=== PATIENT | male | born 1960 | race Caucasian/White ===

== ENCOUNTER 2016-11-02 23:18 | Emergency (ER) | payer SELFPAY ==
[~2016-11-02] VITALS: Ht 175.2 cm; Wt 81.6 kg
[~2016-11-02 23:18] MED LIST: BUPRENORPHINE HY8 MG SL; CLARITIN10 MG PO; FLONASE ALLERG9.9 ML NAS; LIDEX 0.05% CRE15 GM T; PREDNISONE10 MG PO; PREDNISONE20 M1 PO; ROBITUSSIN AC 110 ML PO; SUBOXONE 8 MG-1 EACH SL; SUBUTEX SL; TESSALON PERLE100 M1 PO; ZITHROMAX250 MG PO
[2016-11-03] MEDS ORDERED: CEPHALEXIN500 M1 PO (00:50)
[2016-11-03] MEDS ORDERED: MEDROL DOSEPAK4 MG PO (00:50)
== END 2016-11-03 01:14 | disposition home or self-care (01) ==
LOC: ED 23:18
DX: S93.601A Unspecified sprain of right foot, initial encounter (principal); L03.115 Cellulitis of right lower limb; F17.200 Nicotine dependence, unspecified, uncomplicated; Z88.0 Allergy status to penicillin; Z88.6 Allergy status to analgesic agent; Z90.49 Acquired absence of other specified parts of digestive tract; X50.9XXA Other and unspecified overexertion or strenuous movements or postures, initial encounter; Y93.01 Activity, walking, marching and hiking; Y92.9 Unspecified place or not applicable; Y99.9 Unspecified external cause status

== ENCOUNTER 2017-03-13 18:44 | Emergency (ER) | payer SELFPAY ==
[~2017-03-13] VITALS: Wt 81.6 kg
[~2017-03-13 18:44] MED LIST changes: +CEPHALEXIN500 M1 PO; +MEDROL DOSEPAK4 MG PO
[2017-03-13] MEDS ORDERED: CEPHALEXIN500 M1 PO (19:00)
== END 2017-03-13 19:11 | disposition home or self-care (01) ==
LOC: ED 18:44
DX: L03.116 Cellulitis of left lower limb (principal); F17.200 Nicotine dependence, unspecified, uncomplicated; Z88.0 Allergy status to penicillin; Z88.6 Allergy status to analgesic agent

== ENCOUNTER 2017-05-17 22:56 | Emergency (ER) | payer SELFPAY ==
[~2017-05-17] VITALS: Ht 175.2 cm; Wt 86.2 kg
[2017-05-17] MEDS ORDERED: ASPIRIN CHEWABL81 MG PO (23:13)
== END 2017-05-18 00:38 | disposition home or self-care (01) ==
LOC: ED 22:56
DX: R04.0 Epistaxis (principal); F17.200 Nicotine dependence, unspecified, uncomplicated; Z88.0 Allergy status to penicillin; Z88.8 Allergy status to other drugs, medicaments and biological substances; Z79.82 Long term (current) use of aspirin; Z90.49 Acquired absence of other specified parts of digestive tract

== ENCOUNTER 2018-06-19 18:56 | Emergency (ER) | payer SELFPAY ==
[~2018-06-19] VITALS: Ht 175.2 cm; Wt 81.6 kg
[~2018-06-19 18:56] MED LIST changes: +ASPIRIN CHEWABL81 MG PO; +SUBOXONE 12 MG1 EACH SL
[2018-06-19 19:40] LABS: BASO # 0.1 10*3/uL (0.0-0.1); BASO % 0.6 % (0.0-1.0); EOS # 0.2 10*3/uL (0.0-0.4); EOS % 2.5 % (1.0-4.0); HEMOGLOBIN 14.9 g/dl (14.0-18.0); LYMPH # 2.7 10*3/uL (1.3-4.4); LYMPH % 32.8 % (27.0-41.0); MEAN CELL VOLUME 93.4 fl (80.0-94.0); MEAN CORPUSCULAR HGB 31.6 pg (27.0-31.0); MEAN CORPUSCULAR HGB CONC 33.9 g/dl (33.0-37.0); MEAN PLATELET VOLUME 8.8 fl (9.6-12.3); MONO # 0.5 10*3/uL (0.1-1.0); MONO % 5.7 % (3.0-9.0); NEUT # 4.8 10*3/uL (2.3-7.9); PLATELET COUNT AUTOMATED 170 10*3/uL (130-400); RED BLOOD COUNT 4.71 10*6/uL (4.50-5.90); RED CELL DISTRI WIDTH 12.5 % (0-14.5); WHITE BLOOD COUNT 8.3 10*3/uL (4.8-10.8)
[2018-06-19 19:57] LABS: ALKALINE PHOSPHATASE 69 U/L (45-117); BUN 19 mg/dl (7-24); CHLORIDE 105 mmol/L (98-107); CREATININE 0.89 mg/dL (0.70-1.30); LIPASE 101 U/L (73-393); POTASSIUM 4.1 mmol/L (3.5-5.1); SGOT/AST 20 IU/L (3-35); SGPT/ALT 58 U/L (12-78); SODIUM 139 mmol/L (136-145)
[2018-06-19 21:32] LABS: BILIRUBIN NEGATIVE (NEGATIVE); BLOOD TRACE-INTACT (NEGATIVE); CLARITY CLOUDY (CLEAR); COLOR YELLOW (YELLOW); GLUCOSE NEGATIVE (NEGATIVE); KETONE NEGATIVE (NEGATIVE); LEUKO ESTERASE NEGATIVE (NEGATIVE); NITRITE NEGATIVE (NEGATIVE); UROBILINOGEN 0.2 E.U./dl (0.2-1.0)
[2018-06-19 21:41] LABS: BACTERIA 1+; RBC 0-2 rbc/hpf (0-2)
== END 2018-06-19 22:05 | disposition home or self-care (01) ==
LOC: ED 18:56
PROVIDERS: Student in an Organized Health Care Education/Training Program
DX: R19.7 Diarrhea, unspecified (principal); R11.10 Vomiting, unspecified; M54.9 Dorsalgia, unspecified; R10.9 Unspecified abdominal pain; Z88.0 Allergy status to penicillin; Z88.6 Allergy status to analgesic agent; Z79.899 Other long term (current) drug therapy; Z79.82 Long term (current) use of aspirin

== ENCOUNTER 2019-03-07 16:31 | Emergency (ER) | payer SELFPAY ==
[~2019-03-07] VITALS: Ht 175.2 cm; Wt 83.9 kg
[2019-03-07] MEDS ORDERED: FLONASE ALLERG9.9 ML NAS (17:03)
[2019-03-07] MEDS ORDERED: ZITHROMAX250 MG PO (17:03)
== END 2019-03-07 17:05 | disposition home or self-care (01) ==
LOC: ED 16:31
DX: J32.9 Chronic sinusitis, unspecified (principal); K08.89 Other specified disorders of teeth and supporting structures; F17.200 Nicotine dependence, unspecified, uncomplicated; Z88.0 Allergy status to penicillin; Z88.6 Allergy status to analgesic agent; Z79.899 Other long term (current) drug therapy; Z79.82 Long term (current) use of aspirin

== ENCOUNTER 2019-05-17 13:27 | Emergency (ER) | payer SELFPAY ==
[~2019-05-17] VITALS: Ht 175.2 cm; Wt 81.6 kg
== END 2019-05-17 15:53 | disposition home or self-care (01) ==
LOC: ED 13:27
DX: M54.9 Dorsalgia, unspecified (principal); Z88.0 Allergy status to penicillin; Z88.6 Allergy status to analgesic agent; Z79.899 Other long term (current) drug therapy; Z79.82 Long term (current) use of aspirin